=== PATIENT | male | born 1970 | race Caucasian/White ===

== ENCOUNTER 2024-12-07 09:10 | Emergency (ER) | payer SELFPAY ==
[~2024-12-07] VITALS: Ht 175.3 cm; Wt 75.0 kg
[2024-12-07 09:21] VITALS: O2SAT 100
[2024-12-07] MEDS ORDERED: IBUP-2029 MT (11:05)
[2024-12-07] MEDS: ACETAMINOPHEN 500MG TABLET PO SCH (11:13)
[2024-12-07] MEDS: ACETAMINOPHEN 325MG TABLET PO ONE (11:13)
[2024-12-07 11:14] VITALS: BP 105/85; PULSE 64; RESP 16; TEMP 36.7; O2SAT 99
== END 2024-12-07 11:33 | disposition home or self-care (01) ==
LOC: ER 09:10
DX: M54.59 Other low back pain (principal); Z04.1 Encounter for examination and observation following transport accident
CPT/HCPCS: 72100; 99283